=== PATIENT | female | born 1960 | race Caucasian/White ===

== ENCOUNTER 2019-01-29 13:43 | Emergency (ER) | payer BC ==
[~2019-01-29] VITALS: Ht 167.6 cm; Wt 48.5 kg
[2019-01-29] MEDS ORDERED: oxyCODONE/APAP (5/325 MG) 1 UDTAB TABLET PO ONE (14:00)
[2019-01-29] MEDS ORDERED: IBUPROFEN 600 MG TABLET PO ONE ×2 (14:00→14:01)
--- NOTE | 2019-01-29 14:00 | NUR ---
BIB SELF C/O R ANKLE PAIN AND SWELLING S/P TRIP AND FALL WHILE ICE SKATING. ALERT AND ORIENTED X4 BREATHING EVEN AND UNLABORED WITH NO DISTRESS NOTED. SKIN INTACT. NOTED RIGHT ANKLE SWOLLEN AND PAIN TO TOUCH. SKIN INTACT. WAITING TO BE SEEN BY MD.
[2019-01-29] MEDS ORDERED: oxyCODONE/APAP (5/325 MG) 1 UDTAB TABLET ONE (14:01)
--- NOTE | 2019-01-29 14:15 | NUR ---
MEAT CUTTER APPRENTICE AT BEDSIDE
--- NOTE | 2019-01-29 15:18 | NUR ---
Patient discharged to home in stable condition. Written and verbal after care instructions given. Patient verbalizes understanding of instruction.
--- NOTE | 2019-01-29 15:18 | NUR ---
CRUTCHES PROVIDED TO PT
[2019-01-29 15:30] VITALS: BP 122/70
[2019-02-11] MEDS ORDERED: PIPE2.257 IV (10:30)
[2019-02-11] MEDS ORDERED: VANC500F2 IV (10:30)
[2019-02-11] MEDS ORDERED: HYDR-4384 PO (10:30)
[2019-02-11] MEDS ORDERED: AMPI1.5V IJ (12:11)
[2019-02-11] MEDS ORDERED: AMPI3VIA IJ (13:57)
[2019-02-12] MEDS ORDERED: AMOX-430 PO (09:11)
== END 2019-01-29 15:31 | disposition home or self-care (01) ==
LOC: ER 13:48
DX: S82.61XA Displaced fracture of lateral malleolus of right fibula, initial encounter for closed fracture (principal); W01.0XXA Fall on same level from slipping, tripping and stumbling without subsequent striking against object, initial encounter; Y93.89 Activity, other specified; Y92.89 Other specified places as the place of occurrence of the external cause; Y99.8 Other external cause status
CPT/HCPCS: 73610-TC

== ENCOUNTER 2019-02-03 14:39 | Emergency (ER) | payer BC ==
[~2019-02-03] VITALS: Ht 167.6 cm; Wt 58.1 kg
[2019-02-03 14:44] VITALS: BP 132/73
[2019-02-03] MEDS ORDERED: BACITRACIN ZINC OINT PACKET 1 EA PACKET TP ONE (17:30)
[2019-02-11] MEDS ORDERED: PIPE2.257 IV (10:30)
[2019-02-11] MEDS ORDERED: HYDR-4384 PO (10:30)
[2019-02-11] MEDS ORDERED: VANC500F2 IV (10:30)
[2019-02-11] MEDS ORDERED: AMPI1.5V IJ (12:11)
[2019-02-11] MEDS ORDERED: AMPI3VIA IJ (13:57)
[2019-02-12] MEDS ORDERED: AMOX-430 PO (09:11)
== END 2019-02-03 17:43 | disposition home or self-care (01) ==
LOC: ER 14:47
DX: S90.821A Blister (nonthermal), right foot, initial encounter (principal); S92.111D Displaced fracture of neck of right talus, subsequent encounter for fracture with routine healing; S82.421D Displaced transverse fracture of shaft of right fibula, subsequent encounter for closed fracture with routine healing; F31.9 Bipolar disorder, unspecified; X58.XXXA Exposure to other specified factors, initial encounter; Y93.89 Activity, other specified; Y92.89 Other specified places as the place of occurrence of the external cause; Y99.8 Other external cause status
CPT/HCPCS: 73700; 99284; A6403

== ENCOUNTER 2019-02-06 14:51 | Inpatient (IN) | payer BC ==
[~2019-02-06] VITALS: Ht 167.6 cm; Wt 56.3 kg
--- NOTE | 2019-02-06 15:41 | NUR ---
pt bibself sent by PMD for right foot wound eval, possible need IV ATB to er bed 12 vitals stable, awaiting med eval
--- NOTE | 2019-02-06 15:41 | NUR ---
Note davidone in EDM - 02/06/19 at 1542 by EVICTOR pt mathew. Sent by PMD for right foot wound eval, possible need IV ATB. PT placed on monitor and pulse ox. at bedside. pt was told to come into the ED because her wound looked infected.
[2019-02-06] MEDS ORDERED: ONDANSETRON HCL/PF 4 MG/2 ML VIAL ONE (15:59)
[2019-02-06] MEDS ORDERED: MORPHINE SULFATE INJ 4 MG/ML DISP.SYRIN ONE ×3 (15:59→19:54)
[2019-02-06] MEDS ORDERED: IV NS 0.9% 1,000 ML BAG IV ONE (16:00)
[2019-02-06] MEDS ORDERED: MORPHINE SULFATE INJ 2 MG/ML DISP.SYRIN IV ONE ×3 (16:00→20:30)
[2019-02-06] MEDS ORDERED: ONDANSETRON HCL/PF 4 MG/2 ML VIAL IVP ONE (16:00)
--- NOTE | 2019-02-06 16:15 | NUR ---
LABS COLLECTED AND SENT TO LAB
[2019-02-06 16:21] LABS: BASOPHILS % (AUTO) 0.8 % (0.0-2.0); EOSINOPHILS % (AUTO) 2.4 % (0.0-6.0); HEMATOCRIT 38 % (33-45); HEMOGLOBIN 12.7 g/dL (11.5-14.8); LYMPHOCYTES # (AUTO) 1.2 /CMM (0.8-4.8); LYMPHOCYTES % (AUTO) 23.7 % (20.0-44.0); MEAN CORPUSCULAR HGB CONC 34 g/dl (31.0-36.0); MEAN CORPUSCULAR VOLUME 100 fL (82-100); MONOCYTES # (AUTO) 0.6 /CMM (0.1-1.30); NEUTROPHILS % (AUTO) 61.1 % (43.0-81.0); PLATELET COUNT (AUTO) 214 /CMM (150-450); RED BLOOD CELL COUNT(AUTO) 3.79 MIL/uL (4.0-5.2); WHITE BLOOD COUNT (AUTO) 4.9 K/uL (4.3-11.0)
[2019-02-06 16:35] LABS: CALCIUM, SERUM 9.5 mg/dL (8.5-10.1); CREATININE 1.4 mg/dL (0.6-1.3); POTASSIUM 4.2 mmol/L (3.5-5.1)
--- NOTE | 2019-02-06 16:36 | NUR ---
blood cultures drawn and sent out
[2019-02-06] MEDS ORDERED: VANCOMYCIN 1 GM in IV D5W 250 ML IV ONE (17:00)
[2019-02-06] MEDS ORDERED: CEFTRIAXONE 1GM BAG (ER ONLY) 1 GM/50 ML PIGGYBACK IV ONE (17:00)
[2019-02-06] MEDS ORDERED: ARIP5TAB10 PO (17:10)
[2019-02-06] MEDS ORDERED: TRAZ-182 PO (17:10)
[2019-02-06] MEDS ORDERED: GABA-534 PO (17:10)
[2019-02-06] MEDS ORDERED: LINA290C PO (17:13)
--- NOTE | 2019-02-06 17:14 | NUR ---
FISHING ACCESSORIES MAKER/MED RECON PATIENT UNABLE TO PROVIDE COMPLETE HOME MEDICATION INFO. PER PATIENT "I'LL HAVE MY FAMILY BRING MY MEDICATION FROM MY HOUSE LATER".
[2019-02-06] MEDS ORDERED: VANCOMYCIN 1 GM VIAL ONE (18:05)
--- NOTE | 2019-02-06 19:15 | NUR ---
PAGED [facility].
--- NOTE | 2019-02-06 20:01 | NUR ---
BED 200
--- NOTE | 2019-02-06 20:13 | NUR ---
REPORT GIVEN TO JAYESH PAIGE FOR AGUSTIN
--- NOTE | 2019-02-06 20:20 | NUR ---
WEB CONSULTANT NOTES 2019 PATIENT ARRIVED ON THE UNIT AT 2019 VIA GURNEY. PATIENT HAS DAUGHTER AT BED SIDE. VITAL SIGNS UPON ADMISSION 114/56, PULSE 76, RESPIRATIONS 18, TEMP 97.9 F ORALLY, O2 SAT 99% ON ROOM AIR. CHECKLIST FOR BELONGINGS DONE BY KAREN DENG. PATIENT DX WITH RIGHT FOOT CELLULITIS, ADMITTING DR. IS DR. MILNER. AWAITING ADMISSION ORDERS FROM SAFETY PRECAUTIONS IMPLEMENTED; CALL LIGHT WITHIN REACH, BED LOCKED, BED LOWEST POSITION, BILATERAL UPPER SIDE RAILS UP. WILL CONTINUE TO MONITOR.
[2019-02-06 20:25] VITALS: BP 114/56
[2019-02-06] MEDS ORDERED: DIVA250T PO (20:49)
[2019-02-06] MEDS ORDERED: DESM0.2T23 PO (20:49)
[2019-02-06 21:00] VITALS: BP 114/56
[2019-02-06] MEDS ORDERED: PIPERACILLIN /TAZOBACTAM 2.25 G VIAL IV ONE (22:23)
[2019-02-06] MEDS ORDERED: Z GUARD REMEDY 2 OZ OINT TP PRN (22:30)
[2019-02-06] MEDS ORDERED: MAGNESIUM HYDROXIDE 30 ML UDC PO PRN (22:30)
[2019-02-06] MEDS ORDERED: VANCOMYCIN HCL 1 GM in IV D5W 260 ML IV SCH (22:30)
[2019-02-06] MEDS ORDERED: ZOLPIDEM TARTRATE 5 MG TABLET PO PRN (22:30)
[2019-02-06] MEDS ORDERED: MAG HYDROX/AL HYDROX/SIMETH 30 ML UDC PO PRN (22:30)
[2019-02-06] MEDS ORDERED: ACETAMINOPHEN 325 MG TABLET PO PRN (22:30)
[2019-02-06] MEDS: IV NS 0.9% 1,000 ML IV PRN (22:33)
[2019-02-06] MEDS: ENOXAPARIN SODIUM 40 MG/0.4 ML DISP.SYRIN SQ SCH (22:38)
[2019-02-07 00:05] VITALS: BP 121/82
[2019-02-07] MEDS: GABAPENTIN 300 MG CAPSULE PO SCH ×2 (00:10→21:04)
[2019-02-07] MEDS: HYDROCODONE/APAP 5/325MG 1 EACH TABLET PO PRN ×4 (00:11→21:04)
--- NOTE | 2019-02-07 00:12 | NUR ---
RN NOTES ADMINISTERED NORCO PER PATIENT REQUEST FOR PAIN. EDUCATED PATIENT ON RISKS ASSOCIATED WITH NORCO, PATIENT UNDERSTANDS THE RISKS. WILL CONTINUE TO MONITOR.
--- NOTE | 2019-02-07 04:50 | NUR ---
RN NOTES [address] ESCAMILLA FOR ORDERS ON PAIN MANAGEMENT. PATIENT REQUESTS A STRONGER PAIN MEDICATION BECAUSE SHE IS EXPERIENCING SEVERE PAIN ON HER RIGHT FOOT. DR. CANO CALLED BACK AND VERBALIZED ORDER OF MORPHINE 4 MG EVERY 4 HOURS INTRAVENOUS PUSH PRN. READ BACK ORDER TO CLARIFY. WILL CARRY OUT ORDERS NOW.
[2019-02-07] MEDS ORDERED: PIPERACILLIN /TAZOBACTAM 2.25 G in IV D5W 50 ML IV SCH (05:00)
[2019-02-07 05:33] VITALS: BP 117/63
[2019-02-07] MEDS: MORPHINE SULFATE INJ 4 MG/ML DISP.SYRIN IV PRN ×4 (05:34→23:14)
[2019-02-07 06:40] LABS: BASOPHILS % (AUTO) 0.9 % (0.0-2.0); EOSINOPHILS % (AUTO) 3.4 % (0.0-6.0); HEMATOCRIT 33 % (33-45); LYMPHOCYTES # (AUTO) 1.3 /CMM (0.8-4.8); LYMPHOCYTES % (AUTO) 38.2 % (20.0-44.0); MEAN CORPUSCULAR HGB CONC 34 g/dl (31.0-36.0); MEAN CORPUSCULAR VOLUME 99 fL (82-100); MONOCYTES # (AUTO) 0.4 /CMM (0.1-1.30); MONOCYTES % (AUTO) 10.1 % (2.0-12.0); NEUTROPHILS # (AUTO) 1.7 /CMM (1.8-8.9); NEUTROPHILS % (AUTO) 47.4 % (43.0-81.0); PLATELET COUNT (AUTO) 187 /CMM (150-450); RED BLOOD CELL COUNT(AUTO) 3.28 MIL/uL (4.0-5.2); WHITE BLOOD COUNT (AUTO) 3.5 K/uL (4.3-11.0)
--- NOTE | 2019-02-07 06:41 | NUR ---
RN CLOSING NOTES PATIENT IS CURRENTLY RESTING IN BED, ASLEEP, EASILY AROUSABLE TO MY VOICE. PATIENT IS A/O X 4, ABLE TO STATE NEEDS CLEARLY. NO COMPLAINTS OF PAIN AT THIS TIME. IV SITE RAC #20G INTACT, PATENT, IVF INFUSING WELL ORDERED, NO INFECTION/INFILTRATION NOTED. NO SIGNS OF RESPIRATORY DISTRESS. NO SHORTNESS OF BREATH NOTED. NO COMPLAINTS OF PAIN AT THIS TIME. SAFETY PRECAUTIONS IMPLEMENTED; CALL LIGHT WITHIN REACH, BED LOCKED, BED LOWEST POSITION, BILATERAL UPPER SIDE RAILS UP. WILL CONTINUE TO MONITOR THEN ENDORSE TO DAY SHIFT NURSE FOR CONTINUITY OF CARE.
[2019-02-07 07:05] LABS: CALCIUM, SERUM 8.6 mg/dL (8.5-10.1); CREATININE 1.1 mg/dL (0.6-1.3); MAGNESIUM 2.1 mg/dL (1.8-2.4); PHOSPHORUS 3.8 mg/dL (2.5-4.9); POTASSIUM 4.3 mmol/L (3.5-5.1)
--- NOTE | 2019-02-07 07:15 | NUR ---
MS RN OPENING NOTES RECEIVED PATIENT IN BED ASLEEP, AROUSABLE TO VERBAL AND TACTILE STIMULI. HOB ELEVATED. DENIES ANY C/O PAIN NOR DISCOMFORT AT THIS TIME. RIGHT AC # #20 INTACT AND PATENT INFUSING NS @ 75ML/HR. BED IN LOWEST POSITION, LOCKED. BED SIDERAILS UP X2. CALL LIGHT WITHIN REACH.
[2019-02-07 08:00] VITALS: BP 117/86
[2019-02-07] MEDS: DESMOPRESSIN ACETATE 0.1 MG TABLET PO SCH (09:29)
--- NOTE | 2019-02-07 10:15 | NUR ---
WOUND CARE CONSULT: PT PRESENTS WITH BLISTERS TO RT FOOT AND ANKLE WITH DISCOLORATION, PRESENT ON ADMISSION. PT HAS BEEN TREATED RECENTLY FOR TIB/FIB FRACTURE PER PT REPORT. RECOMMEND FOLLOW UP WITH ORTHO. RECOMMENDATIONS MADE FOR WOUND/SKIN CARE. DISCUSSED WITH NURSING STAFF. DERREK COOK MD IN AGREEMENT WITH PLAN OF CARE. Addendum: 02/07/19 at 1017 by MAURO MONTERROSO WNDNU Amended: Links added. Addendum: 02/07/19 at 1115 by MAURO MONTERROSO WNDNU DPM CONSULT CALLED PER JALYN DAMICO LEFT FOR DR LENNON.
[2019-02-07] MEDS: PIPERACILLIN /TAZOBACTAM 2.25 G in IV D5W 50 ML IV SCH ×3 (12:14→23:14)
[2019-02-07] MEDS ORDERED: FEE PK DOSING 1 MIN EA MC ONE (13:57)
[2019-02-07] MEDS: VANCOMYCIN 500 MG in IV D5W 100 ML IV SCH (14:13)
[2019-02-07] MEDS: SILVER SULFADIAZINE CREAM 25 GM TUBE TP SCH (14:14)
[2019-02-07] MEDS: IV NS 0.9% 1,000 ML IV PRN (14:16)
[2019-02-07 15:47] VITALS: BP 134/70
--- NOTE | 2019-02-07 18:47 | NUR ---
MS RN CLOSING NOTES ALERT AND ORIENTED X4. NO SOB. DENIES ANY C/O PAIN NOR DISCOMFORT AT THIS TIME. RIGHT AC#20 INTACT AND PATENT INFUSING NS @ 75ML/HR, YUNIOR WELL. AMBULATORY WITH STEADY GAIT WITH THE USE OF CRUTCHES. WOUND CARE TX RENDERED TO RT LOWER EXTREMITY, YUNIOR WELL. ELEVATED RT LEG WITH PILLOW. BED IN LOWEST POSITION, LOCKED. BED SIDERAILS UP X2. CALL LIGHT WITHIN REACH. NO S/S OF ACUTE DISTRESS.
--- NOTE | 2019-02-07 19:00 | NUR ---
MS RN NOTE RECEIVED PT IN STABLE CONDITION A/O X4, CURRENTLY IN BED WATCHING TV. NO SIGNS OF SOB OR DISTRESS, NO C/O PAIN OR N/V. IV IN RAC #20, WITH IVF INFUSING, TOLERATING WELL. ALL CURRENT NEEDS ATTENDED TO. BED LOW, LOCKED, UPPER RAILS UP, AND CALL LIGHT WITHIN REACH. WILL CONT. TO MONITOR.
[2019-02-07 20:00] VITALS: BP 128/72
[2019-02-07] MEDS: ENOXAPARIN SODIUM 40 MG/0.4 ML DISP.SYRIN SQ SCH (21:45)
[2019-02-07] MEDS ORDERED: PROP10TA10 PO (23:33)
[2019-02-07] MEDS ORDERED: QUET200T PO (23:33)
[2019-02-07] MEDS ORDERED: VENL75CA62 PO (23:33)
[2019-02-07] MEDS ORDERED: LEVO75TA7 PO (23:33)
[2019-02-08] MEDS: HYDROCODONE/APAP 5/325MG 1 EACH TABLET PO PRN ×4 (01:16→17:40)
[2019-02-08] MEDS: VANCOMYCIN 500 MG in IV D5W 100 ML IV SCH ×2 (01:16→15:16)
[2019-02-08] MEDS: MORPHINE SULFATE INJ 4 MG/ML DISP.SYRIN IV PRN ×4 (03:18→20:00)
[2019-02-08] MEDS: PIPERACILLIN /TAZOBACTAM 2.25 G in IV D5W 50 ML IV SCH ×3 (05:01→17:31)
--- NOTE | 2019-02-08 06:16 | NUR ---
MS RN NOTE PT REMAINS IN STABLE CONDITION A/O X4, CURRENTLY IN BED WATCHING TV. NO SIGNS OF SOB OR DISTRESS, NO C/O PAIN OR N/V. IV IN RAC #20, WITH IVF INFUSING, TOLERATING WELL. ALL CURRENT NEEDS ATTENDED TO. BED LOW, LOCKED, UPPER RAILS UP, AND CALL LIGHT WITHIN REACH. WILL CONT. TO MONITOR AND ENDORSE TO NEXT SHIFT FOR AGUSTIN.
[2019-02-08 06:26] LABS: CALCIUM, SERUM 8.9 mg/dL (8.5-10.1); CREATININE 1.1 mg/dL (0.6-1.3); PHOSPHORUS 3.8 mg/dL (2.5-4.9); POTASSIUM 3.9 mmol/L (3.5-5.1)
[2019-02-08 06:28] LABS: EOSINOPHILS % (AUTO) 1.8 % (0.0-6.0); HEMATOCRIT 32 % (33-45); HEMOGLOBIN 10.7 g/dL (11.5-14.8); LYMPHOCYTES # (AUTO) 1.3 /CMM (0.8-4.8); LYMPHOCYTES % (AUTO) 31.9 % (20.0-44.0); MEAN CORPUSCULAR HGB CONC 34 g/dl (31.0-36.0); MEAN CORPUSCULAR VOLUME 98 fL (82-100); MONOCYTES # (AUTO) 0.5 /CMM (0.1-1.30); MONOCYTES % (AUTO) 12.4 % (2.0-12.0); NEUTROPHILS # (AUTO) 2.2 /CMM (1.8-8.9); NEUTROPHILS % (AUTO) 52.9 % (43.0-81.0); PLATELET COUNT (AUTO) 201 /CMM (150-450); RED BLOOD CELL COUNT(AUTO) 3.23 MIL/uL (4.0-5.2); WHITE BLOOD COUNT (AUTO) 4.2 K/uL (4.3-11.0)
--- NOTE | 2019-02-08 07:05 | NUR ---
MS RN OPENING NOTES ALERT AND ORIENTED X4. RESTING COMFORTABLY IN BED. RIGHT AC #20 INTACT AND PATENT. RT LOWER LEG WOUND DRESSING INTACT. MAINTAINED ELEVATION OF RT LEG WITH PILLOW. PER PATIENT PAIN MANAGEABLE AT THIS TIME.BED IN LOWEST POSITION, LOCKED. BED SIDERAILS UP X2. CALL LIGHT WITHIN REACH. ABLE TO VERBALIZE NEEDS.
[2019-02-08 08:17] VITALS: BP 106/45
[2019-02-08] MEDS: SILVER SULFADIAZINE CREAM 25 GM TUBE TP SCH (08:24)
[2019-02-08] MEDS: DESMOPRESSIN ACETATE 0.1 MG TABLET PO SCH (08:25)
[2019-02-08] MEDS: Linaclotide (Linzess) 290 MG PO SCH (08:49)
[2019-02-08] MEDS ORDERED: DIVALPROEX SODIUM 250 MG PO SCH (09:00)
--- NOTE | 2019-02-08 09:13 | NUR ---
MS RN NOTES SPOKE TO PATIENT REGARDING DEPAKOTE DR, PER PATIENT SHE TAKES MEDICATION ONCE A DAY AT NIGHT. PHARMACY AWARE. DEPAKOTE DR NOT ADMINISTERED DUE TO [facility] DOSE ONLY.
[2019-02-08] MEDS: ONDANSETRON HCL/PF 4 MG/2 ML VIAL IVP PRN (12:14)
--- NOTE | 2019-02-08 12:17 | NUR ---
MS RN NOTES PATIENT C/O NOT HAVING A BM SINCE TUESDAY. MOM GIVEN
[2019-02-08 16:29] VITALS: BP 116/66
--- NOTE | 2019-02-08 19:00 | NUR ---
MS RN CLOSING NOTES ALERT AND ORIENTED X4. NO SOB. DENIES ANY C/O PAIN NOR DISCOMFORT AT THIS TIME. RIGHT FA#22 INTACT AND PATENT. AMBULATORY WITH STEADY GAIT WITH THE USE OF CRUTCHES. WOUND CARE TX RENDERED TO RT LOWER EXTREMITY, YUNIOR WELL. MAINTAINED ELEVATION OF RT LEG WITH PILLOW. BED IN LOWEST POSITION, LOCKED. BED SIDERAILS UP X2. CALL LIGHT WITHIN REACH. IN NO APPARENT DISTRESS.
--- NOTE | 2019-02-08 19:30 | NUR ---
MS RN NOTE: PATIENT RESTING IN BED, NO ACUTE DISTRESS NOTED. BREATHING EVEN AND UNLABORED, NO SOB NOTED. IV TO RFA IN PLACE. DRESSING RIGHT LEG IN PLACE. NO BLEEDING NOTED. BED LOCKED AND IN LOWEST POSITION, CALL LIGHT IN REACH. WILL CONTINUE TO MONITOR.
[2019-02-08 19:56] VITALS: BP 122/65
--- NOTE | 2019-02-08 20:05 | NUR ---
MS RN NOTE: PATIENT COMPLAINS OF PAIN TO RLE 9, MORPHINE 4MG IV GIVEN PER MD ORDER. WILL CONTINUE TO MONITOR.
[2019-02-08] MEDS: DIVALPROEX SODIUM 250 MG PO SCH (21:36)
[2019-02-08] MEDS: GABAPENTIN 300 MG CAPSULE PO SCH (21:36)
[2019-02-08] MEDS: ENOXAPARIN SODIUM 40 MG/0.4 ML DISP.SYRIN SQ SCH (21:41)
[2019-02-09] MEDS: PIPERACILLIN /TAZOBACTAM 2.25 G in IV D5W 50 ML IV SCH ×5 (00:08→23:22)
[2019-02-09] MEDS: MORPHINE SULFATE INJ 4 MG/ML DISP.SYRIN IV PRN ×5 (00:10→21:43)
[2019-02-09] MEDS: VANCOMYCIN 500 MG in IV D5W 100 ML IV SCH ×2 (02:05→14:11)
--- NOTE | 2019-02-09 06:30 | NUR ---
MS RN NOTE: PATIENT RESTING IN BED, NO ACUTE DISTRESS NOTED. BREATHING EVEN AND UNLABORED, NO SOB NOTED. IV TO RFA IN PLACE. DRESSING RIGHT LEG IN PLACE. NO BLEEDING NOTED. BED LOCKED AND IN LOWEST POSITION, CALL LIGHT IN REACH. WILL ENDORSE TO DAY NURSE TO CONTINUE WITH PLAN OF CARE.
[2019-02-09 06:55] LABS: CALCIUM, SERUM 9.2 mg/dL (8.5-10.1); CREATININE 1.1 mg/dL (0.6-1.3); POTASSIUM 3.9 mmol/L (3.5-5.1)
--- NOTE | 2019-02-09 08:00 | NUR ---
MS RN OPENING NOTES ALERT AND ORIENTED X4. RESTING COMFORTABLY IN BED. RIGHT AC #20 INTACT AND PATENT. RT LOWER LEG WOUND DRESSING INTACT. MAINTAINED ELEVATION OF RT LEG WITH PILLOW. PAIN MANAGEMENT PRN GIVEN WITH EFFECTIVE RESULT. BED IN LOWEST POSITION, LOCKED. WITH BRP USING CRUTCHES WHEN GOING TO THE TOILET. BED SIDERAILS UP X2. CALL LIGHT WITHIN REACH. ABLE TO VERBALIZE NEEDS.
[2019-02-09 08:01] VITALS: BP 107/55
[2019-02-09] MEDS: Linaclotide (Linzess) 290 MG PO SCH (09:26)
[2019-02-09] MEDS: HYDROCODONE/APAP 5/325MG 1 EACH TABLET PO PRN (09:26)
[2019-02-09] MEDS: SILVER SULFADIAZINE CREAM 25 GM TUBE TP SCH (09:30)
[2019-02-09] MEDS: PROPRANOLOL HCL 10 MG TABLET PO SCH (11:30)
[2019-02-09] MEDS: LEVOTHYROXINE SODIUM 75 MCG TABLET PO SCH (12:28)
[2019-02-09] MEDS: VENLAFAXINE XR 75 MG CAP.SR.24H PO SCH (12:34)
[2019-02-09 16:09] VITALS: BP 138/73
--- NOTE | 2019-02-09 17:00 | NUR ---
MANUFACTURING TECHNOLOGY ANALYST STILL ARRANGING HOME HEALTH FOR THE PT FOR CONTINUATION OF IV ATB ZOSYN AND VANCO FOR 2 WEEKS.
--- NOTE | 2019-02-09 19:00 | NUR ---
MS RN OPENING NOTES Received patient A/O x4, awake on bed. On RA, no SOB/respiratory distress noted at this time. Patient denies any discomfort at this time. Kept on bed clean, dry and comfortable. On fall and aspiration precautions. Call light within easy reach. Will continue to monitor accordingly.
--- NOTE | 2019-02-09 19:00 | NUR ---
NOTIFIED RN [employer],STILL AWAITING FOR ROYAL WANG PICC LINE NURSE TO INSERT PICC LINE.ROYAL WANG STATED THAT HE WILL COME LATER. PT DENIES ANY PAIN OR DISTRESS.
[2019-02-09 20:00] VITALS: BP 107/59
[2019-02-09] MEDS: ARIPIPRAZOLE 5 MG TABLET PO SCH (21:31)
[2019-02-09] MEDS: DESMOPRESSIN ACETATE 0.1 MG TABLET PO SCH (21:32)
[2019-02-09] MEDS: QUETIAPINE FUMARATE 100 MG TABLET PO SCH (21:32)
[2019-02-09] MEDS: TRAZODONE 50 MG TABLET PO SCH (21:32)
[2019-02-09] MEDS: DIVALPROEX SODIUM 250 MG PO SCH (21:32)
[2019-02-09] MEDS: GABAPENTIN 300 MG CAPSULE PO SCH (21:32)
[2019-02-09] MEDS: ENOXAPARIN SODIUM 40 MG/0.4 ML DISP.SYRIN SQ SCH (21:33)
[2019-02-09] MEDS ORDERED: DESMOPRESSIN ACETATE 0.1 MG TABLET PO SCH (22:00)
--- NOTE | 2019-02-09 22:15 | NUR ---
MS RN NOTES Patient confirmed the PICC line placement for joselin PICC line RN on the way, ETA 5-10mins.
[2019-02-10] MEDS: VANCOMYCIN 500 MG in IV D5W 100 ML IV SCH ×2 (02:12→15:10)
[2019-02-10] MEDS: MORPHINE SULFATE INJ 4 MG/ML DISP.SYRIN IV PRN ×4 (04:43→20:28)
[2019-02-10] MEDS: PIPERACILLIN /TAZOBACTAM 2.25 G in IV D5W 50 ML IV SCH ×4 (06:10→23:11)
--- NOTE | 2019-02-10 06:29 | NUR ---
MS RN CLOSING NOTES Patient asleep on bed at this time. On RA, no SOB/respiratory distress noted. Medicated for pain, noted effective. New PICC line in place, in used for IV ATB as ordered. No new complaints made, afebrile the whole shift. Noted ambulatory to bathroom using crutches, tolerated well independently. All nursing needs attended, due meds given as ordered. Kept on bed clean, dry and comfortable. Call light within easy reach. Endorsed to the next shift.
[2019-02-10] MEDS: LEVOTHYROXINE SODIUM 75 MCG TABLET PO SCH (06:37)
[2019-02-10 08:00] VITALS: BP 112/54
--- NOTE | 2019-02-10 08:00 | NUR ---
MS RN OPENING NOTES ALERT AND ORIENTED X4. RESTING COMFORTABLY IN BED. RIGHT AC #20 INTACT AND PATENT. RT LOWER LEG WOUND DRESSING INTACT. MAINTAINED ELEVATION OF RT LEG WITH PILLOW. SEEN BY HILARIO YUSUF AND AWAITING FOR VANCO TROUGH AND FOR PHARMACY TO DOSE. PAIN MANAGEMENT PRN GIVEN WITH EFFECTIVE RESULT. BED IN LOWEST POSITION, LOCKED. BRP WITH ASSIST USING CRUTCHES WHEN GOING TO THE TOILET. BED SIDERAILS UP X2. CALL LIGHT WITHIN REACH. ABLE TO VERBALIZE NEEDS.
[2019-02-10 08:27] LABS: CALCIUM, SERUM 8.8 mg/dL (8.5-10.1); CREATININE 1.1 mg/dL (0.6-1.3); POTASSIUM 3.5 mmol/L (3.5-5.1)
[2019-02-10] MEDS: PROPRANOLOL HCL 10 MG TABLET PO SCH (08:34)
[2019-02-10] MEDS: Linaclotide (Linzess) 290 MG PO SCH (08:34)
[2019-02-10] MEDS: ONDANSETRON HCL/PF 4 MG/2 ML VIAL IVP PRN (08:34)
[2019-02-10] MEDS: VENLAFAXINE XR 75 MG CAP.SR.24H PO SCH (08:35)
[2019-02-10] MEDS: SILVER SULFADIAZINE CREAM 25 GM TUBE TP SCH (08:46)
[2019-02-10] MEDS ORDERED: IOHEXOL-300 100 ML VIAL IV ONE (10:31)
[2019-02-10] MEDS ORDERED: IV NS 0.9% 250 ML IV ONE (10:32)
[2019-02-10] MEDS ORDERED: CT SWABBABLE VALVE TRANS SET 1 EA INFUS.SET MC ONE (10:32)
[2019-02-10] MEDS: HYDROCODONE/APAP 5/325MG 1 EACH TABLET PO PRN (12:30)
--- NOTE | 2019-02-10 15:02 | NUR ---
CALLED PHARMACY FOR DELIVERY OF VANCO IV DUE AT 1400 2X. VANCO TROUGH WAS 11.
[2019-02-10 16:00] VITALS: BP 100/60
--- NOTE | 2019-02-10 19:35 | NUR ---
RN OPENING NOTE 1935 RECEIVED PATIENT IN BED, AWAKE. PATIENT IS A/O X 4. ON ROOM AIR, TOLERATING WELL, NO SIGNS OF RESPIRATORY DISTRESS, DENIES SHORTNESS OF BREATH. PATIENT IS STATES SHE IS EXPERIENCING PAIN 9/10 ON RIGHT LEG/FOOT, WILL ADMINISTER PAIN MEDICATION WHEN POSSIBLE. SAFETY PRECAUTIONS IMPLEMENTED; CALL LIGHT WITHIN REACH, BED LOWEST POSITION, BED LOCKED, BILATERAL UPPER SIDE RAILS UP. PATIENT FAMILY AT BED SIDE. INSTRUCTED PATIENT TO PRESS CALL LIGHT WHEN NEEDED. WILL CONTINUE TO MONITOR.
[2019-02-10 20:00] VITALS: BP 123/62
[2019-02-10 20:35] VITALS: BP 123/62
[2019-02-10] MEDS: GABAPENTIN 300 MG CAPSULE PO SCH (21:32)
[2019-02-10] MEDS: DIVALPROEX SODIUM 250 MG PO SCH (21:32)
[2019-02-10] MEDS: QUETIAPINE FUMARATE 100 MG TABLET PO SCH (21:32)
[2019-02-10] MEDS: ARIPIPRAZOLE 5 MG TABLET PO SCH (21:33)
[2019-02-10] MEDS: DESMOPRESSIN ACETATE 0.1 MG TABLET PO SCH (21:33)
[2019-02-10] MEDS: TRAZODONE 50 MG TABLET PO SCH (21:33)
[2019-02-10] MEDS: ENOXAPARIN SODIUM 40 MG/0.4 ML DISP.SYRIN SQ SCH (21:36)
[2019-02-11] MEDS: VANCOMYCIN 500 MG in IV D5W 100 ML IV SCH (01:10)
[2019-02-11] MEDS: PIPERACILLIN /TAZOBACTAM 2.25 G in IV D5W 50 ML IV SCH ×2 (05:33→11:16)
[2019-02-11] MEDS: MORPHINE SULFATE INJ 4 MG/ML DISP.SYRIN IV PRN (06:04)
--- NOTE | 2019-02-11 06:36 | NUR ---
RN CLOSING NOTES PATIENT IS CURRENTLY ASLEEP IN BED, EASILY AWAKENED. ON ROOM AIR, NO SIGNS OF RESPIRATORY DISTRESS, NO SHORTNESS OF BREATH NOTED. PAIN WAS MANAGED WITH MEDICATION, NOTED EFFECTIVE. PICC LINE INTACT/PATENT, NO SIGNS OF INFECTION/INFILTRATION, FLUSHED. PATIENT AMBULATED TO BATHROOM USING CRUTCHES, TOLERATED WELL. ALL NEEDS ATTENDED, ALL MEDS GIVEN ORDERED. PATIENT KEPT CLEAN, DRY, AND COMFORTABLE. SAFETY PRECAUTIONS REMAIN IMPLEMENTED; CALL LIGHT WITHIN REACH, BED LOWEST POSITION, BED LOCKED, BILATERAL UPPER SIDE RAILS UP. WILL CONTINUE TO MONITOR, THEN WILL ENDORSE TO DAY SHIFT NURSE FOR CONTINUITY OF CARE.
[2019-02-11 07:27] LABS: CALCIUM, SERUM 8.8 mg/dL (8.5-10.1); CREATININE 1.2 mg/dL (0.6-1.3); POTASSIUM 3.5 mmol/L (3.5-5.1)
--- NOTE | 2019-02-11 07:50 | NUR ---
MS RN OPENING NOTE PATIENT IN BED RESTING COMFORTABLY. PATIENT IN NO ACUTE DISTRESS. NO SOB NOTED. PATIENT BREATHING IS EVEN AND UNLABORED. PATIENT IN NO PAIN AT THIS TIME. NO FACIAL GRIMACING NOTED. BED ALARM IS ON. HOB IS ELEVATED. PATIENT BED IS LOCKED AND IN LOWEST POSITION. CALL LIGHT WITHIN REACH. WILL CONTINUE TO MONITOR.
[2019-02-11 08:00] VITALS: BP 100/56
[2019-02-11 08:13] VITALS: BP 100/54
[2019-02-11] MEDS: VENLAFAXINE XR 75 MG CAP.SR.24H PO SCH (08:13)
[2019-02-11] MEDS: LEVOTHYROXINE SODIUM 75 MCG TABLET PO SCH (08:13)
[2019-02-11] MEDS: PROPRANOLOL HCL 10 MG TABLET PO SCH (08:13)
[2019-02-11] MEDS: SILVER SULFADIAZINE CREAM 25 GM TUBE TP SCH (08:14)
[2019-02-11] MEDS: Linaclotide (Linzess) 290 MG PO SCH (08:18)
[2019-02-11] MEDS ORDERED: VANC500F2 IV (10:30)
[2019-02-11] MEDS ORDERED: PIPE2.257 IV (10:30)
[2019-02-11] MEDS ORDERED: HYDR-4384 PO (10:30)
[2019-02-11] MEDS: HYDROCODONE/APAP 5/325MG 1 EACH TABLET PO PRN (11:16)
[2019-02-11] MEDS ORDERED: AMPI1.5V IJ (12:11)
[2019-02-11] MEDS ORDERED: AMPI3VIA IJ (13:57)
--- NOTE | 2019-02-11 14:45 | NUR ---
MS RN CLOSING NOTE PATIENT MEDICALLY CLEARED FOR DISCHARGE. PATIENT IN NO ACUTE DISTRESS. NO SOB NOTED. PATIENT BREATHING IS EVEN AND UNLABORED. PATIENT VITAL SIGNS WNL. PATIENT PROVIDED WOUND CARE ORDERED. PATIENT DC INSTRUCTIONS PROVIDED. PATIENT VERBALIZED UNDERSTANDING. PATIENT PICC LINE PATENT AND INTACT FOR HOME HEALTH IV ANTIBIOTICS. PATIENT ACKNOWLEDGED ALL AND HAS ALL BELONGINGS WITH HER. PATIENT SIGNED BELONGINGS LIST. PATIENT HAS DC PACKET. PATIENT ID BAND REMOVED. SKIN ASSESSED, NO NEW SKIN BREAKDOWN NOTED. PATIENT KEPT CLEAN, DRY, AND COMFORTABLE THROUGHOUT SHIFT. PATIENT IN NO PAIN AT THIS TIME. NEEDS AND CONCERNS ADDRESSED. PATIENT GOING BACK HOME WITH DAUGHTERS FATHER BY CAR BACK HOME. MD AWARE Addendum: 02/11/19 at 1534 by MARINO LEMA RN MS RN CLOSING NOTE PATIENT MEDICALLY CLEARED FOR DISCHARGE. PATIENT IN NO ACUTE DISTRESS. NO SOB NOTED. PATIENT BREATHING IS EVEN AND UNLABORED. PATIENT VITAL SIGNS WNL. PATIENT PROVIDED WOUND CARE ORDERED. PATIENT DC INSTRUCTIONS PROVIDED. PATIENT VERBALIZED UNDERSTANDING. PATIENT PICC LINE PATENT AND INTACT FOR HOME HEALTH IV ANTIBIOTICS. PATIENT ACKNOWLEDGED ALL AND HAS ALL BELONGINGS WITH HER. PATIENT SIGNED BELONGINGS LIST. PATIENT HAS DC PACKET. PATIENT ID BAND REMOVED. SKIN ASSESSED, NO NEW SKIN BREAKDOWN NOTED. PATIENT KEPT CLEAN, DRY, AND COMFORTABLE THROUGHOUT SHIFT. PATIENT IN NO PAIN AT THIS TIME. NEEDS AND CONCERNS ADDRESSED. PATIENT GOING BACK HOME WITH DAUGHTERS FATHER BY CAR BACK HOME. MD AWARE OF DISCHARGE.
[2019-02-12] MEDS ORDERED: AMOX-430 PO (09:11)
== END 2019-02-11 14:45 | disposition home health service (06) | DRG 602 ==
LOC: ER 14:53 → MEDSG2 20:05
PROVIDERS: ADMIT Hospitalist; ATTEND Nurse Practitioner Acute Care
PROC: 05HY33Z Insertion of Infusion Device into Upper Vein, Percutaneous Approach (ICD-10-PCS; principal; 2019-02-09)
DX: L03.115 Cellulitis of right lower limb (principal); N17.0 Acute kidney failure with tubular necrosis; E87.0 Hyperosmolality and hypernatremia; F31.9 Bipolar disorder, unspecified; F41.9 Anxiety disorder, unspecified; Z80.8 Family history of malignant neoplasm of other organs or systems; Z87.891 Personal history of nicotine dependence; F42.9 Obsessive-compulsive disorder, unspecified; D63.8 Anemia in other chronic diseases classified elsewhere; S90.821A Blister (nonthermal), right foot, initial encounter; X58.XXXA Exposure to other specified factors, initial encounter; Y93.9 Activity, unspecified; Y92.009 Unspecified place in unspecified non-institutional (private) residence as the place of occurrence of the external cause; S92.111D Displaced fracture of neck of right talus, subsequent encounter for fracture with routine healing; S82.421D Displaced transverse fracture of shaft of right fibula, subsequent encounter for closed fracture with routine healing; L50.9 Urticaria, unspecified
CPT/HCPCS: 36415; 73701-TC; 80048-TC; 80202-TC; 83735-TC; 84100-TC; 85025-TC; 86803; 87040-TC; 87070-TC; 87081-TC; 87186-TC; 87806; 97116-TC; 97530-TC; A4217; A6253; A6403; C1751; G0378; J1650; J2270; J2405; J2543; J3370; J7030; J7050; J7060; Q9967

== ENCOUNTER 2019-02-16 11:17 | Outpatient (CLI) | payer BC ==
[~2019-02-16 11:17] MED LIST: AMOX-430 PO; ARIP5TAB10 PO; DESM0.2T23 PO; DIVA250T PO; GABA-534 PO; HYDR-4384 PO; LEVO75TA7 PO; LINA290C PO; PROP10TA10 PO; QUET200T PO; TRAZ-182 PO; VENL75CA62 PO
[2019-02-16 11:20] VITALS: BP 100/64
== END 2019-02-16 23:59 | disposition home or self-care (01) ==
LOC: MSC 11:17
PROVIDERS: ATTEND Internal Medicine
DX: S82.891D Other fracture of right lower leg, subsequent encounter for closed fracture with routine healing (principal); S90.821D Blister (nonthermal), right foot, subsequent encounter; L03.818 Cellulitis of other sites; L03.115 Cellulitis of right lower limb; F31.9 Bipolar disorder, unspecified; F41.9 Anxiety disorder, unspecified; G89.29 Other chronic pain

== ENCOUNTER → 2019-02-27 | Outpatient (CLI) | payer BC | END | disposition home or self-care (01) | LOC: MSC 09:40 | PROVIDERS: ATTEND Anesthesiology | DX: M79.671 Pain in right foot (principal); S90.821A Blister (nonthermal), right foot, initial encounter; L08.89 Other specified local infections of the skin and subcutaneous tissue; Z87.19 Personal history of other diseases of the digestive system; F10.21 Alcohol dependence, in remission; Z80.9 Family history of malignant neoplasm, unspecified; Z79.891 Long term (current) use of opiate analgesic; Z79.1 Long term (current) use of non-steroidal anti-inflammatories (NSAID) ==

== ENCOUNTER → 2019-03-27 | Outpatient (CLI) | payer BC | END | disposition home or self-care (01) | LOC: MSC 10:00 | PROVIDERS: ATTEND Anesthesiology | DX: M79.671 Pain in right foot (principal); S90.829D Blister (nonthermal), unspecified foot, subsequent encounter; L08.89 Other specified local infections of the skin and subcutaneous tissue; S99.921D Unspecified injury of right foot, subsequent encounter; F41.8 Other specified anxiety disorders; F31.9 Bipolar disorder, unspecified; G47.00 Insomnia, unspecified; Z80.9 Family history of malignant neoplasm, unspecified; F10.21 Alcohol dependence, in remission; Z87.891 Personal history of nicotine dependence; Z79.891 Long term (current) use of opiate analgesic ==

== ENCOUNTER → 2019-04-25 | Outpatient (CLI) | payer BC | END | disposition home or self-care (01) | LOC: MSC 14:55 | PROVIDERS: ATTEND Anesthesiology | DX: M79.671 Pain in right foot (principal); S90.821D Blister (nonthermal), right foot, subsequent encounter; L08.89 Other specified local infections of the skin and subcutaneous tissue; S99.921D Unspecified injury of right foot, subsequent encounter; F41.8 Other specified anxiety disorders; F31.9 Bipolar disorder, unspecified; Z87.891 Personal history of nicotine dependence; F10.21 Alcohol dependence, in remission; Z79.891 Long term (current) use of opiate analgesic; Z79.1 Long term (current) use of non-steroidal anti-inflammatories (NSAID) ==

== ENCOUNTER 2019-05-29 09:35 | Outpatient (CLI) | payer BC | END 2019-05-29 23:59 | disposition home or self-care (01) | LOC: MSC 09:35 | PROVIDERS: ATTEND Anesthesiology | DX: M79.671 Pain in right foot (principal); S99.921D Unspecified injury of right foot, subsequent encounter; S90.821D Blister (nonthermal), right foot, subsequent encounter; L08.89 Other specified local infections of the skin and subcutaneous tissue; F41.8 Other specified anxiety disorders; F31.9 Bipolar disorder, unspecified; Z87.891 Personal history of nicotine dependence; Z85.9 Personal history of malignant neoplasm, unspecified; Z98.890 Other specified postprocedural states; Z87.19 Personal history of other diseases of the digestive system; Z79.891 Long term (current) use of opiate analgesic ==

== ENCOUNTER → 2019-06-26 | Outpatient (CLI) | payer BC | END | disposition home or self-care (01) | LOC: MSC 10:10 | PROVIDERS: ATTEND Anesthesiology | DX: M79.671 Pain in right foot (principal); S99.921D Unspecified injury of right foot, subsequent encounter; S90.829A Blister (nonthermal), unspecified foot, initial encounter; L08.89 Other specified local infections of the skin and subcutaneous tissue; F41.8 Other specified anxiety disorders; F31.9 Bipolar disorder, unspecified; Z80.9 Family history of malignant neoplasm, unspecified; Z96.653 Presence of artificial knee joint, bilateral; Z87.19 Personal history of other diseases of the digestive system; Z79.891 Long term (current) use of opiate analgesic; Z79.1 Long term (current) use of non-steroidal anti-inflammatories (NSAID) ==

== ENCOUNTER → 2019-07-24 | Outpatient (CLI) | payer BC | END | disposition home or self-care (01) | LOC: MSC 10:10 | PROVIDERS: ATTEND Anesthesiology | DX: S92.901D Unspecified fracture of right foot, subsequent encounter for fracture with routine healing (principal); S90.829D Blister (nonthermal), unspecified foot, subsequent encounter; L08.89 Other specified local infections of the skin and subcutaneous tissue; F41.8 Other specified anxiety disorders; F31.9 Bipolar disorder, unspecified; Z80.9 Family history of malignant neoplasm, unspecified; Z96.653 Presence of artificial knee joint, bilateral; Z79.891 Long term (current) use of opiate analgesic; Z79.1 Long term (current) use of non-steroidal anti-inflammatories (NSAID) ==

== ENCOUNTER → 2019-08-28 | Outpatient (CLI) | payer BC | END | disposition home or self-care (01) | LOC: MSC 10:25 | PROVIDERS: ATTEND Anesthesiology | DX: M79.671 Pain in right foot (principal); S92.901D Unspecified fracture of right foot, subsequent encounter for fracture with routine healing; S90.821D Blister (nonthermal), right foot, subsequent encounter; L08.89 Other specified local infections of the skin and subcutaneous tissue; F41.8 Other specified anxiety disorders; F31.9 Bipolar disorder, unspecified; Z80.9 Family history of malignant neoplasm, unspecified; Z96.653 Presence of artificial knee joint, bilateral; Z79.891 Long term (current) use of opiate analgesic; Z79.1 Long term (current) use of non-steroidal anti-inflammatories (NSAID) ==